=== PATIENT | female | born 1985 | race Caucasian/White ===

== ENCOUNTER 2017-02-05 18:46 | Emergency (ER) | payer OTHER ==
--- NOTE | 2017-02-05 19:00 | PDOC ---
Rapid Medical Evaluation Time Seen by Provider: 02/05/17 18:58 Medical Evaluation: Allergies Allergy/AdvReac Type Severity Reaction Status Date / Time No Known Allergies Allergy Verified 01/14/16 17:40 02/05/17 18:59 Pt presents with complaint of : irreg vag bleed, lmp last week, no abd pain On brief exam: vss I have ordered the following: ua upreg Pt will go to the Emergency Dept for further workup Discharge Disposition - Diagnosis Vaginal bleeding - Referrals - Patient Instructions - Post Discharge Activity
[2017-02-05 19:01] VITALS: TEMP 97.9; BMI 27.4
--- NOTE | 2017-02-05 21:12 | PDOC ---
History of Present Illness <Analisa Goff - Last Filed: 02/05/17 22:35> - History of Present Illness Initial Comments: 02/06/17 05:21 The patient is a 31 year old female [id number] with a significant PMH of left oophorectomy, chronic anemia, cholecystectomy, adenomyosis, hypoglycemia, who presents to the emergency department with vaginal bleeding and suprapubic pain that began today. The patient reports that she had sexual intercourse two days ago that ended with unusual bleeding at abdominal pain, No new partners. . She did not have hematuria yesterday but she noted hematuria today when wiping. The patients LMP was on January 27. The patient denies fever, chills, nausea, vomit, diarrhea and constipation. Denies dysuria, frequency, urgency, or vaginal discharge. Notably, the partient had tubes tied in 2011 but still got in 2013 of a heathy baby girl. 02/06/17 05:24 <Mika Linda - Last Filed: 02/06/17 05:51> - General Chief Complaint: Vaginal Bleeding Stated Complaint: PAIN Time Seen by Provider: 02/05/17 18:58 Past History <Analisa Goff - Last Filed: 02/05/17 22:35> - Past Medical History Anemia: Yes Asthma: No Cancer: No Cardiac Disorders: No COPD: No Diabetes: (HYPOGLYCEMIA) HTN: No Seizures: No Thyroid Disease: No - Surgical History Abdominal Surgery: (Rt ovary removed due to cysts/tumor) Cholecystectomy: Yes - Reproductive History (#): 0 Para: 0 Cervical CA: No Dysfunctional Uterine Bleeding: No Ectopic : No Endometrial CA: No Polycystic Ovaries: No Therapeutic (s) & number: No Tubal Ligation: No Spontaneous : 0 - Immunization History Immunization Up to Date: Yes - Suicide/Smoking/Psychosocial Hx Smoking Status: No Smoking History: Never smoked Have you smoked in the past 12 months: No Number of Cigarettes Smoked Daily: 0 Information on smoking cessation initiated: No Hx Alcohol Use: No Drug/Substance Use Hx: No Substance Use Type: None Hx Substance Use Treatment: No <Mika Linda - Last Filed: 02/06/17 05:51> - Past Medical History Allergies/Adverse Reactions: Allergies Allergy/AdvReac Type Severity Reaction Status Date / Time No Known Allergies Allergy Verified 02/05/17 19:01 Home Medications: Ambulatory Orders Acetaminophen [Tylenol Extra Strength] 500 mg PO TID #14 tablet 02/06/17 Review of Systems - Review of Systems Able to Perform ROS?: Yes Is the patient limited Norwegian proficient: No Constitutional: No: Symptoms Reported HEENTM: No: Symptoms Reported Respiratory: No: Symptoms reported Cardiac (ROS): No: Symptoms Reported ABD/GI: Yes: Abdominal cramping : No: Symptoms Reported Musculoskeletal: No: Symptoms Reported Integumentary: No: Symptoms Reported Neurological: No: Symptoms reported Endocrine: No: Symptoms Reported All Other Systems: Reviewed and Negative <Mika Linda - Last Filed: 02/06/17 05:51> *Physical Exam - Vital Signs Last Vital Signs Temp Pulse Resp BP Pulse Ox 97.9 F 74 18 131/79 100 02/05/17 18:59 02/05/17 18:59 02/05/17 18:59 02/05/17 18:59 02/05/17 18:59 <Analisa Goff - Last Filed: 02/05/17 22:35> - Vital Signs Last Vital Signs Temp Pulse Resp BP Pulse Ox 97.9 F 74 18 131/79 100 02/05/17 18:59 02/05/17 18:59 02/05/17 18:59 02/05/17 18:59 02/05/17 18:59 - Physical Exam General Appearance: Yes: Nourished, Appropriately Dressed. No: Apparent Distress HEENT: positive: EOMI, JUS, Normal ENT Inspection Neck: positive: Trachea midline, Normal Thyroid. negative: Tender Respiratory/Chest: positive: Lungs Clear, Normal Breath Sounds, Respiratory Distress. negative: Chest Tender Cardiovascular: positive: Regular Rhythm, Regular Rate, S1, S2 Female Pelvic Exam: positive: normal external exam, normal adnexa, normal size ovaries. 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, Fully Oriented, Alert, Normal Mood/ Affect, Normal Response, Motor Strength 5/5 <Mika Linda - Last Filed: 02/06/17 05:51> ED Treatment Course - LABORATORY CBC & Chemistry Diagram: 02/05/17 21:44 02/05/17 21:44 - ADDITIONAL ORDERS Additional order review: Laboratory Results 02/05/17 02/05/17 21:50 20:47 PT with INR 10.90 INR 0.96 PTT (Actin FS) 32.9 Urine Color Ltyellow Urine Appearance Clear Urine pH 6.0 Ur Specific [place] 1.026 Urine Protein Negative Urine Glucose (UA) 3+ H D Urine Ketones Negative Urine Blood Negative Urine Nitrite Negative Urine Bilirubin Negative Urine Urobilinogen Negative Urine HCG, Qual Negative 02/05/17 21:44 RBC 4.73 MCV 68.3 L MCHC 31.5 L RDW 14.8 D MPV 8.5 Neutrophils % 48.1 Lymphocytes % 42.8 H Monocytes % 7.0 Eosinophils % 1.4 Basophils % 0.7 <Analisa Goff - Last Filed: 02/05/17 22:35> - LABORATORY CBC & Chemistry Diagram: 02/05/17 21:44 02/05/17 21:44 - RADIOLOGY Radiology Studies Ordered: Category Date Time Status TRANSVAGINAL ULTRASOUND US [US] Stat Ultrasound 02/05/17 21:07 Ordered <Mika Linda - Last Filed: 02/06/17 05:51> Medical Decision Making - Medical Decision Making 02/06/17 05:49 TVUS Findings: The uterus is retroverted and measures 8.4 x 5.3 x 5.9 cm. No myometrial mass identified. The endometrial stripe is of normal thickness, measuring 9 mm. Nabothian cysts are noted. The right ovary measures 4.8 x 2.7 x 3.1 cm with arterial flow. Tiny follicles are noted within the right ovary. The left ovary is surgically absent. No free fluid identified in the cul-de-sac. Impression: Status post left oophorectomy. No evidence of right ovarian torsion at this time. 02/06/17 05:50 Patient will follow up with OBGYN outpatient within 2-3 days <Mika Linda - Last Filed: 02/06/17 05:51> *DC/Admit/Observation/Transfer <Analisa Goff - Last Filed: 02/05/17 22:35> - Discharge Dispostion Admit: No <Mika Linda - Last Filed: 02/06/17 05:51> Diagnosis at time of Disposition: Vaginal bleeding - Discharge Dispostion Disposition: HOME - Prescriptions Prescriptions: Acetaminophen [Tylenol Extra Strength] 500 mg PO TID #14 tablet - Referrals Referrals: Vaughn Soliman MD [Staff Physician] - - Patient Instructions Printed Discharge Instructions: DI for Vaginal Bleeding Additional Instructions: Follow up with your OBGYN or Dr. Soliman within the next 2-3 days. Come back to the ER if symptoms of abdominal pain and bleeding worsen, persist, or if you develop new symptoms like fever or weakness.
[2017-02-05 21:15] LABS: URINE APPEARANCE CLEAR; URINE BILIRUBIN NEGATIVE (NEGATIVE); URINE BLOOD NEGATIVE (NEGATIVE); URINE COLOR LTYELLOW; URINE GLUCOSE (UA) 3+ (NEGATIVE); URINE KETONE NEGATIVE (NEGATIVE); URINE NITRITE NEGATIVE (NEGATIVE); URINE PROTEIN NEGATIVE (NEGATIVE); URINE UROBILINOGEN NEGATIVE mg/dL (0.2-1.0)
--- NOTE | 2017-02-05 21:19 | PDOC ---
Attending Attestation - HPI HPI: 02/05/17 22:35 The patient is a 31 year old female A1 with a significant PMH of left oophorectomy, cholecystectomy, adenomyosis, hypoglycemia, and chronic anemia who presents to the emergency department with vaginal bleeding and suprapubic pain that began today. The patient reports that she had sexual intercourse two days ago. She did not have hematuria yesterday but she noted hematuria today when wiping. The patient reports that she only has one sexual partner. The patients LMP was on January 27. The patient denies fever, chills, nausea, vomit, diarrhea and constipation. Denies dysuria, frequency, urgency, or vaginal discharge. Allergies: NKA Social history: No reported alcohol, drug, or cigarette use. <Analisa Goff - Last Filed: 02/05/17 22:36> - Resident Resident Name: Mika Linda - ED Attending Attestation I have performed the following: I have examined & evaluated the patient, The case was reviewed & discussed with the resident, I agree w/resident's findings & plan, Exceptions are as noted - Physicial Exam PE: 02/05/17 23:46 *Physical Exam General Appearance: Yes: Appropriately Dressed. No: Apparent Distress, Intoxicated HEENT: positive: EOMI, JUS, Normal ENT Inspection, Normal Voice, TMs Normal, Pharynx Normal. negative: Pale Conjunctivae, Photophobia, Scleral Icterus (R), Scleral Icterus (L) Neck: positive: Trachea midline, Normal Thyroid, Supple. negative: Tender, Rigid, Carotid bruit, Stridor, Lymphadenopathy (R), Lymphadenopathy (L), Thyromegaly Respiratory/Chest: positive: Lungs Clear, Normal Breath Sounds. negative: Chest Tender, Respiratory Distress, Accessory Muscle Use, Labored Respiration, RES, Crackles, Rales, Rhonchi, Stridor, Wheezing, Dullness Cardiovascular: positive: Regular Rhythm, Regular Rate, S1, S2. negative: Edema , JVD, Murmur, Bradycardia, Tachycardia Vascular Pulses: Dorsalis-Pedis (R): 2+, Doralis-Pedis (L): 2+ Gastrointestinal/Abdominal: positive: Normal Bowel Sounds, Flat, Soft. negative : Tender, Organomegaly, Pulsatile Mass, Increased Bowel Sounds, Decreased BS, Distended, Guarding, Rebound, Hernia, Hepatomegaly, Spleenomegaly Lymphatic: negative: Adenopathy, Tenderness Musculoskeletal: positive: Normal Inspection. negative: CVA Tenderness, Decreased Range of Motion Extremity: positive: Normal Capillary Refill, Normal Inspection, Normal Range of Motion, Pelvis Stable. negative: Tender, Pedal Edema, Swelling, Erythema Integumentary: positive: Normal Color, Dry, Warm. 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 negative: EOM Palsy, Facial Droop, Sensory Deficit - Medical Decision Making 02/05/17 23:53 Pt was treated and released. 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 <Rogers Thacker - Last Filed: 02/05/17 23:54>
[2017-02-05 22:05] LABS: BASOPHIL 0.7 % (0-2.0); EOSINOPHIL 1.4 % (0-4.5); MCH 21.5 pg (25.7-33.7); MCHC 31.5 g/dl (32.0-36.0); MEAN CELL VOLUME 68.3 fl (80-96); MEAN PLT VOLUME 8.5 fl (7.5-11.1); NEUTROPHILS 48.1 % (42.8-82.8); PLATELET COUNT 298 K/MM3 (134-434); RDW 14.8 % (11.6-15.6); WHITE BLOOD COUNT 5.7 K/mm3 (4.0-10.0)
[2017-02-05 22:18] LABS: INR 0.96 (0.82-1.09); PROTHROMBIN TIME (PATIENT) 10.9 SEC (9.98-11.88)
[2017-02-05 22:21] LABS: ACTIVATED PTT 32.9 SECONDS (26.9-34.4)
[2017-02-05 22:34] LABS: ALBUMIN 3.8 g/dl (3.4-5.0); ANION GAP 6 (8-16); BILIRUBIN,TOTAL 0.4 mg/dL (0.2-1.0); CALCIUM 8.3 mg/dL (8.5-10.1); CO2 27 mmol/L (21-32); CREATININE 0.6 mg/dL (0.55-1.02); GLUCOSE,RANDOM 211 mg/dL (74-106); SGOT/AST 9 U/L (15-37); SGPT/ALT 20 U/L (12-78); TOT PROT 7.3 g/dl (6.4-8.2)
[2017-02-05 22:36] LABS: ALK PHOS 86 U/L (45-117); FERRITIN 3.297 ng/ml (6.9-282.5)
[2017-02-05 23:07] LABS: HYPOCHROMIA 2+; MICROCYTOSIS 1+; OVALOCYTE 1+; POIKILOCYTOSIS 1+; POLYCHROMASIA 1+
[2017-02-05 23:34] VITALS: BP 109/72; PULSE 86
[2017-02-06] MEDS ORDERED: ACETAMINOPHEN 500 MG TABLET (FP) PO ONE (05:19)
[2017-02-06 12:34] LABS: URINE LEUK ESTERASE Negative (NEGATIVE)
== END 2017-02-06 00:28 | disposition home or self-care (01) ==
LOC: JER 18:46
DX: N93.8 Other specified abnormal uterine and vaginal bleeding (principal); Z90.721 Acquired absence of ovaries, unilateral; Z90.49 Acquired absence of other specified parts of digestive tract
CPT/HCPCS: 36415; 76830-TC; 80053; 81003; 82728; 84703; 85025; 85610; 85730; 86850; 86900; 86901; 99283-25